=== PATIENT | female | born 1940 | race Caucasian/White ===

== ENCOUNTER 2019-04-25 17:39 | Inpatient (IN) ==
[2019-04-25 18:57] LABS: Basophils % 0.2 %; Eosinophils % 0.1 %; Hematocrit 43.6 % (35.3-44.9); Hemoglobin 15.1 g/dL (11.5-15.4); Immature Granulocytes % 0.3 % (0-4); Lymphocytes # 2.1 K/mcL (0.6-4.6); Lymphocytes % 13.2 %; Mean Corpuscular HGB Conc 34.6 g/dL (31.6-35.5); Mean Corpuscular Hemoglobin 29.9 pg (28.0-33.3); Mean Corpuscular Volume 86.3 fL (83.0-100.0); Mean Platelet Volume 9.4 fL (9.4-12.4); Monocytes # 1.3 K/mcL (0.0-1.3); Monocytes % 8.1 %; Neutrophils # 12.6 K/mcL (1.6-8.9); Platelet Count 317 K/mcL (140-400); Red Blood Count 5.05 M/mcL (3.82-4.97); Red Cell Distribution Width 12.5 % (11.5-14.5); Segmented Neutrophils % 78.1 %; White Blood Count 16.1 K/mcL (4.3-11.1)
[2019-04-25 19:14] LABS: Alanine Aminotransferase 16 Units/L (7-52); Albumin 4.6 g/dL (3.5-5.7); Albumin/Globulin Ratio 1.3 (1.1-2.2); Alkaline Phosphatase 97 Units/L (34-104); Aspartate Amino Transferase 18 Units/L (13-39); BUN/Creatinine Ratio 22 (6-26); Bilirubin,Total 0.9 mg/dL (0.3-1.0); Blood Urea Nitrogen 22 mg/dL (8-23); Calcium 10.3 mg/dL (8.6-10.3); Carbon Dioxide 25 mEq/L (23-29); Chloride 99 mEq/L (98-107); Globulin 3.5 g/dL (2.4-3.5); Glucose 104 mg/dL (70-105); Lipase 16 Units/L (11-82); Osmolality,Calculated 288 (280-300); Potassium 3.4 mEq/L (3.5-5.1); Sodium 137 mEq/L (136-145); Total Protein 8.1 g/dL (6.4-8.9); eGFR For African Americans > 60 (> 60); eGFR For Non-African Americans 53 (> 60)
--- NOTE | 2019-04-25 19:33 | Emergency Department Note ---
Disposition Clinical Impression: Bloody stool, Colitis, Atherosclerotic cardiovascular disease Abdominal pain Qualifiers: Abdominal location: generalized Qualified Code(s): R10.84 - Generalized abdominal pain Sepsis Qualifiers: Sepsis type: sepsis due to unspecified organism Qualified Code(s): A41.9 - Sepsis, unspecified organism Disposition: Admitted As Inpatient Referrals: NONE,PCP [Primary Care Provider] - Forms: ED Satisfaction Letter Time of Disposition: 22:51 General Adult HPI - General Chief complaint: ED GI Bleed Stated complaint: Vomiting,Bloody Stool Time Seen by Provider: 04/25/19 19:10 Source: patient, family Mode of arrival: private vehicle Limitations: no limitations Nursing Notes Reviewed: Yes Vital Signs Reviewed: Yes - History of Present Illness HPI Narrative: Patient is a 78 year old female with a past medical history of hypertension, hyperlipidemia, GERD, arthritis, presenting with a chief complaint of vomiting an one episode of bloody diarrhea at 1030 am. Yesterday evening she had a salad with turkey on it and 2 hours later she started to vomit. She has had several episodes of nonbilious nonbloody emesis. This morning she 2 episodes of diarrhea. The second episode had a visible dark red blood. She complains of mild diffuse abdominal pain which he describes as cramping. No dysuria hematuria. Denies fevers or chills. No chest pain or shortness breath. Madisyn nt does note she also had an episode of right-sided flank pain for 2 days that is now resolved. Has never had a colonoscopy before. Pain Scale: 6 - Related Data Allergies Allergy/AdvReac Type Severity Reaction Status Date / Time No Known Allergies Allergy Verified 04/25/19 20:15 All systems ED: reviewed and negative except as stated. Review of Systems: As Per HPI Constitutional: Denies: fever, chills Cardiovascular: Denies: chest pain, palpitations Respiratory: Denies: cough, dyspnea Gastrointestinal: Reports: abdominal pain, nausea, vomiting, diarrhea, hematochezia. Denies: hematemesis, melena Genitourinary: Denies: dysuria, hematuria Musculoskeletal: Denies: back pain Neurological: Denies: headache Past Medical History - Past Medical History Attestation: Yes The following information was validated with the patient. Source: patient Medical history: Reports: arthritis, GERD, hyperlipidemia, hypertension Psychiatric history: Reports: no psych history - Social History Smoking Status: Never smoker Smokeless Tobacco Status: No Alcohol use: Reports: none Drug use: Reports: none Physical Exam - General Limitations: no limitations General appearance: alert, in no apparent distress - Head Head exam: atraumatic, normocephalic, normal inspection - Eye Eye exam: Present: normal appearance, PERRL, EOMI - ENT ENT exam: normal exam, normal oropharynx, mucous membranes moist - Neck Neck exam: Present: normal inspection, trachea midline - Chest Chest inspection: Present: normal inspection, symmetric chest wall rise - Respiratory Respiratory exam: Present: normal lung sounds bilaterally. Absent: respiratory distress, wheezes - Cardiovascular Cardiovascular exam: Present: normal rhythm, tachycardia, normal heart sounds - Abdominal Exam Abdominal exam: Present: soft, Non-Tender. 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 Absent: pedal edema - Neurological Exam Neurological exam: Present: alert, oriented X3 - Psychiatric Psychiatric exam: Present: normal affect, normal mood - Skin Skin exam: Present: warm, dry. Absent: diaphoresis, pallor Course Vital Signs Temperature 99 F 04/25/19 18:02 Pulse Rate 116 04/25/19 18:02 Respiratory Rate 20 04/25/19 18:02 Blood Pressure 135/79 04/25/19 18:02 O2 Sat by Pulse Oximetry 94 04/25/19 18:02 Temperature 99 F 04/25/19 18:02 Pulse Rate 116 04/25/19 18:02 Respiratory Rate 20 04/25/19 18:02 Blood Pressure 135/79 04/25/19 18:02 O2 Sat by Pulse Oximetry 94 04/25/19 18:02 Oxygen Delivery Oxygen Delivery Room Air Medical Decision Making - MDM Narrative Medical decision making narrative: Patient does have leukocytosis. She has a nontender abdomen. She has grossly bright red stool on rectal examination. No hemorrhoids noted or anal tears. She is slightly tachycardic. Hemoglobin and hematocrit are within normal limits. We will give her a liter of IV fluids and give her Zofran for nausea. EKG shows no acute ischemic changes. Troponin less than 0.03 and electrolytes within normal limits. We will obtain CT abdomen and pelvis with IV contrast to further evaluate. 21:20 CT imaging shows circumferential wall thickening and surrounding stranding involving short segment of colon at the level of the distal transverse colon and splenic flexure which could represent focal colitis versus mass. She will require direct visualization with colonoscopy. She also has moderate to severe atherosclerotic disease of the aorta. Cholelithiasis is noted without cholecystitis. We will obtain lactate and blood cultures. She will need to receive another 1500 mL bolus of IV fluids. We will start IV Cipro and Flagyl for the colitis. She will be admitted for sepsis secondary to colitis and lower GI bleed. 2:[address] Nelson who accepts admission - Medical Records Medical records reviewed: Yes I reviewed the patient's medical records. - Lab Data Lab results reviewed: Yes I reviewed the patient's lab results. Result diagrams: 04/25/19 18:40 04/25/19 18:40 Lab Results 04/25/19 04/25/19 04/25/19 Range/Units 18:40 18:40 18:40 WBC 16.1 H (4.3-11.1) K/mcL RBC 5.05 H (3.82-4.97) M/mcL Hgb 15.1 (11.5-15.4) g/dL Hct 43.6 (35.3-44.9) % MCV 86.3 (83.0-100.0) fL MCH 29.9 (28.0-33.3) pg MCHC 34.6 (31.6-35.5) g/dL RDW 12.5 (11.5-14.5) % Plt Count 317 (140-400) K/mcL MPV 9.4 (9.4-12.4) fL Immature Gran % 0.3 (0-4) % Seg Neutrophils % 78.1 % Lymphocytes % 13.2 % Monocytes % 8.1 % Eosinophils % 0.1 % Basophils % 0.2 % Neutrophils # 12.6 H (1.6-8.9) K/mcL Lymphocytes # 2.1 (0.6-4.6) K/mcL Monocytes # 1.3 (0.0-1.3) K/mcL Eosinophils # 0.0 (0.0-0.6) K/mcL Basophils # 0.0 (0.0-0.2) K/mcL Sodium 137 (136-145) mEq/L Potassium 3.4 L (3.5-5.1) mEq/L Chloride 99 (98-107) mEq/L Carbon Dioxide 25 (23-29) mEq/L BUN 22 (8-23) mg/dL Creatinine 1.02 (0.60-1.20) mg/dL Est GFR ( Amer) > 60 (> 60) Est GFR (Non-Af Amer) 53 L (> 60) BUN/Creatinine Ratio 22 (6-26) Glucose 104 (70-105) mg/dL Calculated Osmolality 288 (280-300) Lactic Acid 1.5 (0.5-2.2) mmol/L Calcium 10.3 (8.6-10.3) mg/dL Total Bilirubin 0.9 (0.3-1.0) mg/dL AST 18 (13-39) Units/L ALT 16 (7-52) Units/L Alkaline Phosphatase 97 (34-104) Units/L Troponin I (< 0.04) ng/mL Serum Total Protein 8.1 (6.4-8.9) g/dL Albumin 4.6 (3.5-5.7) g/dL Globulin 3.5 (2.4-3.5) g/dL Albumin/Globulin Ratio 1.3 (1.1-2.2) Lipase 16 (11-82) Units/L Stool Occult Bld Scrn (Negative) 04/25/19 04/25/19 04/25/19 Range/Units 18:40 19:48 21:44 WBC (4.3-11.1) K/mcL RBC (3.82-4.97) M/mcL Hgb (11.5-15.4) g/dL Hct (35.3-44.9) % MCV (83.0-100.0) fL MCH (28.0-33.3) pg MCHC (31.6-35.5) g/dL RDW (11.5-14.5) % Plt Count (140-400) K/mcL MPV (9.4-12.4) fL Immature Gran % (0-4) % Seg Neutrophils % % Lymphocytes % % Monocytes % % Eosinophils % % Basophils % % Neutrophils # (1.6-8.9) K/mcL Lymphocytes # (0.6-4.6) K/mcL Monocytes # (0.0-1.3) K/mcL Eosinophils # (0.0-0.6) K/mcL Basophils # (0.0-0.2) K/mcL Sodium (136-145) mEq/L Potassium (3.5-5.1) mEq/L Chloride (98-107) mEq/L Carbon Dioxide (23-29) mEq/L BUN (8-23) mg/dL Creatinine (0.60-1.20) mg/dL Est GFR ( Amer) (> 60) Est GFR (Non-Af Amer) (> 60) BUN/Creatinine Ratio (6-26) Glucose (70-105) mg/dL Calculated Osmolality (280-300) Lactic Acid 0.7 (0.5-2.2) mmol/L Calcium (8.6-10.3) mg/dL Total Bilirubin (0.3-1.0) mg/dL AST (13-39) Units/L ALT (7-52) Units/L Alkaline Phosphatase (34-104) Units/L Troponin I < 0.03 (< 0.04) ng/mL Serum Total Protein (6.4-8.9) g/dL Albumin (3.5-5.7) g/dL Globulin (2.4-3.5) g/dL Albumin/Globulin Ratio (1.1-2.2) Lipase (11-82) Units/L Stool Occult Bld Scrn Positive A (Negative) - Radiology Data Radiology results reviewed: Yes I reviewed the patient's radiology results. Chest X-Ray 04/25/19 18:34 IMPRESSION: No acute abnormality identified. D/ / Merari Joseph Cha, MD / Merari Joseph Cha, MD Interpreting Provider: Merari Joseph Cha, MD Chest X-Ray 04/25/19 18:34 IMPRESSION: No acute abnormality identified. D/ / Merari Joseph Cha, MD / Merari Joseph Cha, MD Interpreting Provider: Merari Joseph Cha, MD Abdomen/Pelvis CT 04/25/19 19:50 IMPRESSION: 1. Circumferential wall thickening and surrounding stranding involving a short segment of colon at the level of the distal transverse colon/splenic flexure. While findings potentially could reflect focal colitis, recommend direct visualization when clinically feasible to exclude the possibility of underlying mass. 2. Moderate to severe atherosclerotic disease of the aorta. The mesenteric vessels appear patent within limits of the exam. 3. Cholelithiasis. D/ / Samir Marti MD / Samir Marti MD Interpreting Provider: Samir Marti MD - EKG Data EKG #1 EKG attestation: Yes I reviewed and interpreted this EKG. EKG results narrative: EKG obtained at 1910 shows sinus tachycardia with heart rate 103, IA interval 181, QRS duration 80, QTc 432, T-wave inversion in V3, V4, lead 2, lead 3, aVF, no ST elevation or depression. Compared to old EKG on March 30 2006 which shows no new changes. Attestation Statement - Attestation Attestation: This documentation is done with the assistance of Dragon dictation. Despite efforts made to ensure accuracy, there may be inaccuracies in repeat photocomposing machine operator or spelling and typographical errors. I examined this patient and my medical decision-making was reviewed with the Resident Physician. I agree with the documented findings, disposition and treatment plan as described except to the extent set forth below. Patient was seen and evaluated by Dr. abbasi, I agree with their evaluation and management plan,I supervised the care of the patient's stay. Patient presents today after having abdominal pain and blood in her bowel movement 24 hours. Should yesterday morning she felt fine she ate some last night vomited and then had this occur. She denies any history of bloody bowel movement. She says that she had a test on a couple years ago to make sure she did not have colon cancer but refuses colonoscopy. She is on aspirin but does not have any easy bleeding. Here she has guaiac positive stool. Doing workup on her including a CT and most likely will need admission. I reviewed the residents documentation and agree with the residents assessment and plan of care. I have personally had face to face time with the patient. (Brief History, Brief Exam, and MDM) I personally supervised and was present for the silva/critical portions of the following procedures completed by the resident: EKG was read and interpreted by the ED resident, under my supervision, agree with their interpretation.
[2019-04-25] MEDS ORDERED: Isovue-370 500 ML BOTTLE IVP ONE (19:50)
[2019-04-25] MEDS ORDERED: 0.9 % Sodium Chloride 1,000 ML IVC ONE ×2 (19:50→21:53)
[2019-04-25] MEDS ORDERED: Ondansetron 4 MG/2 ML VIAL IVP ONE (19:51)
[2019-04-25] MEDS ORDERED: 0.9 % Sodium Chloride 500 ML IVC ONE (21:53)
[2019-04-25] MEDS ORDERED: MetroNIDAZOLE 500 MG/100 ML 500 MG/100 ML BAG IVPB ONE (21:54)
[2019-04-26] MEDS ORDERED: Acetaminophen 325 MG TABLET PO PRN (05:46)
[2019-04-26] MEDS ORDERED: Naloxone 0.4 MG/ML INJ IVP PRN (05:46)
[2019-04-26] MEDS ORDERED: *HR* HYDROcodone/Acet 5/325 mg TABLET PO PRN (05:46)
[2019-04-26] MEDS ORDERED: Ondansetron 4 MG/2 ML VIAL IVP PRN (05:46)
[2019-04-26 06:16] LABS: Bilirubin,Urine Negative (Negative); Blood,Urine Negative (Negative); Clarity,Urine Clear (Clear); Color,Urine Yellow (Yellow); Glucose,Urine (UA) Normal (Normal); Ketones,Urine Negative (Negative); Leukocyte Esterase,Urine Negative (Negative); Nitrite,Urine Positive (Negative); PH,Urine 5.5 pH Units (5.0-8.0); Protein,Urine Negative (Neg-Trace); Specific Gravity,Urine > 1.030 (1.010-1.025); Urobilinogen,Urine Normal (Normal)
[2019-04-26] MEDS: Pantoprazole 40 MG VIAL IVP SCH ×2 (06:16→18:17)
[2019-04-26] MEDS: 0.9 % Sodium Chloride w KCl 20 MEQ/1,000 ML MLS IVC SCH ×2 (06:16→18:17)
[2019-04-26 06:20] LABS: Bacteria,Urine Moderate per hpf (None-Few); Hyaline Casts,Urine None Seen per lpf (None-Few); RBC,Urine 0-3 per hpf (0-3); Squamous Epithelial Cell,Urine Many per lpf (None-Few)
--- NOTE | 2019-04-26 06:25 | Internal Med History&Physical ---
Date of Encounter: 04/26/19 Time of Encounter: 05:15 Internal Medicine - H&P: HPI Chief complaint: abdominal pain; bloody stool Admitted From: Emergency Dept Plans for Post Hospital Care: Home History of present illness: Ms. Ramsey is a 78 year old female who presents with a 2 day history of abdominal pain, cramping, nausea, vomiting, and diarrhea with bloody stools. Symptoms became worse and were causing her to double over. She therefore came to ER where she underwent CT scan imaging. CT scan found concerns for possible colitis versus colonic mass. She was admitted to hospital service for further care. Upon my assessment of the patient, she is resting bed comfortably now. She does have some mild pain but is much improved. She has had some fevers and chills at home last 2 days. She denies any exotic food ingestion. She denies any raw or undercooked meats. Regarding the bloody stools, she has never had a colonoscopy in the past. CT scan results are concerning for possible malignancy versus coli tis. She will need a colonoscopy once her colitis improves. I discussed this with patient and she is agreeable. She denies any unexplained weight loss, appetite loss, and/or nausea vomiting prior to this episode which began 2 days ago. Past Med Surg Social Fam HX - Past Medical History Attestation: Yes The following information was validated with the patient. Source: patient, old records reviewed Medical history: arthritis, GERD, hyperlipidemia, hypertension Psychiatric history: no psych history - Past Surgical History Surgical History: appendectomy, cataract, cholecystectomy, hysterectomy, knee replacement - Social History Smoking Status: Never smoker Smokeless Tobacco Status: No Alcohol use: none Drug use: none Current living situation: Home Activity Level: Independent ambulation Recent Out of Country Travel Within the Last 8 Weeks: No - Family History Mother History Unknown: Yes Father History Unknown: Yes Internal Medicine - H&P: Meds Aspirin 81 mg pe PO DAILY 04/25/19 [History] Lisinopril-HCTZ 20-12.5 20 mg PO DAILY 04/25/19 [History] Metoprolol 100 mg PO DAILY 04/25/19 [History] Ranitidine HCl 150 mg PO DAILY 04/25/19 [History] Simvastatin 40 mg PO DAILY 04/25/19 [History] Tramadol HCl 50 mg PO DAILY 04/25/19 [History] Vitamin D 10,000 units PO DAILY 04/25/19 [History] Allergy/AdvReac Type Severity Reaction Status Date / Time No Known Allergies Allergy Verified 04/25/19 20:15 - Constitutional Constitutional: chills, fever(s), no night sweats - EENT Eyes: no blurry vision, no change in vision Ears: no ear pain, no tinnitus Nose, mouth and throat: no sore throat - Cardiovascular Cardiovascular ROS IM: no chest pain, no dyspnea, no dyspnea on exertion - Respiratory Respiratory: no cough, no dyspnea, no chest congestion, no excessive phlegm production - Gastrointestinal Gastrointestinal: abdominal pain, diarrhea, hematochezia, nausea, vomiting, no coffee ground emesis, no melena - Genitourinary Genitourinary: no dysuria, no flank pain, no hematuria - Musculoskeletal Musculoskeletal ROS IM: no arthralgias, no back pain - Integumentary Integumentary IM: no rash, no jaundice - Neurological Neurological ROS: no dizziness, no focal weakness, no frequent falls, no headache(s) - Psychiatric Psychiatric: no anxiety, no depression - Endocrine Endocrine IM: no cold intolerance, no heat intolerance, no polydipsia, no polyuria - Allergic/Immunologic Allergic/Immunologic: no wheezing, no GI upset with certain foods - Constitutional Vitals: Temp Pulse Resp BP Pulse Ox 98.4 F 81 16 124/69 96 04/26/19 04:37 04/26/19 04:37 04/26/19 04:37 04/26/19 04:37 04/26/19 04:37 General appearance: Present: cooperative, mild distress, A&O X 3, pleasant, answers questions appropriately Exam: see below - Head Head exam: Present: normal inspection - Eye Eye exam: Present: EOMI, PERRL. Absent: scleral icterus Pupils: Present: normal accommodation - ENT ENT exam: Present: mucous membranes dry, normal exam, normal oropharynx - Neck Neck exam general surgery: Present: full ROM, supple, trachea midline. Absent: tenderness, nuchal rigidity, thyromegaly - Respiratory Respiratory exam: Present: CTAB. Absent: rales, rhonchi, wheezes - Cardiovascular Cardiovascular exam: Present: +S1, +S2. Absent: diastolic murmur, distant heart sounds, systolic murmur - GI/Abdominal GI/Abdominal exam: Present: hypoactive bowel sounds, tenderness, no peritoneal signs. Absent: guarding, hepatomegaly, rebound, splenomegaly - Extremities Exam Extremities exam: Present: full ROM, normal capillary refill, tenderness. Absent: calf tenderness, pedal edema - Back Exam Back exam: Absent: CVA tenderness (L), CVA tenderness (R) - Neurological Exam Neurological exam: Present: alert, oriented X3, no focal deficits, strengths equal and symetr throughout - Psychiatric Psychiatric exam: Present: normal affect, normal mood - Skin Skin exam: Present: dry, intact, warm Internal Med - H&P Results - Labs CBC & Chem 7: 04/25/19 18:40 04/25/19 18:40 Labs: Short CBC 04/25/19 Range/Units 18:40 WBC 16.1 H (4.3-11.1) K/mcL Hgb 15.1 (11.5-15.4) g/dL Hct 43.6 (35.3-44.9) % Plt Count 317 (140-400) K/mcL Neutrophils # 12.6 H (1.6-8.9) K/mcL BMP 04/25/19 18:40 Sodium 137 Potassium 3.4 L Chloride 99 Carbon Dioxide 25 BUN 22 Creatinine 1.02 Glucose 104 Calcium 10.3 Cardiac Enzymes 04/25/19 Range/Units 18:40 Troponin I < 0.03 (< 0.04) ng/mL Liver Function 04/25/19 Range/Units 18:40 Total Bilirubin 0.9 (0.3-1.0) mg/dL AST 18 (13-39) Units/L ALT 16 (7-52) Units/L Alkaline Phosphatase 97 (34-104) Units/L Albumin 4.6 (3.5-5.7) g/dL - Impressions ITS Impressions Chest X-Ray 04/25/19 18:34 IMPRESSION: No acute abnormality identified. D/ / Merari Joseph Cha, MD / Merari Joseph Cha, MD Interpreting Provider: Merari Joseph Cha, MD Abdomen/Pelvis CT 04/25/19 19:50 IMPRESSION: 1. Circumferential wall thickening and surrounding stranding involving a short segment of colon at the level of the distal transverse colon/splenic flexure. While findings potentially could reflect focal colitis, recommend direct visualization when clinically feasible to exclude the possibility of underlying mass. 2. Moderate to severe atherosclerotic disease of the aorta. The mesenteric vessels appear patent within limits of the exam. 3. Cholelithiasis. D/ / Samir Marti MD / Samir Marti MD Interpreting Provider: Samir Marti MD - Diagnostic Studies CT scan - abdomen Status: image reviewed by me - Assessment and Plan (1) Colitis Current Visit: Yes Status: Acute Assessment and plan: 1. NPO. 2. IVF, pain control, anti-emetics. 3. IV Flagyl, Cipro. 4. Consult surgery -- discussed with Dr. Palacios. (2) Abdominal pain Current Visit: Yes Status: Acute Assessment and plan: 1. Likely due to above. Sudden onset 2 - 3days ago. 2. Care and surgical consult as above. Qualifiers: Abdominal location: generalized Qualified Code(s): R10.84 - Generalized abdominal pain (3) DVT prophylaxis Current Visit: Yes Status: Acute Assessment and plan: 1. EPCD's.
[2019-04-26] MEDS: MetroNIDAZOLE 500 MG/100 ML 500 MG/100 ML BAG IVPB SCH ×2 (09:22→18:17)
--- NOTE | 2019-04-26 10:55 | AcuteCare Surgery Consult Note ---
Date of Encounter: 04/26/19 Time of Encounter: 10:50 Assessment and Plan (1) Hematemesis Current Visit: Yes Status: Acute Discussed diagnosis of hematemesis with pt and her daughter. Recommend EGD for evaluation for UGI bleeding. H&H stable and normal. Procedure, risk and benefits of upper endoscopy are discussed. Pt understands risks and possible complications. Possible complications include but, are not limited to bleeding, infection or perforation. Pt understands and wishes to proceed as recommended. Consent is obtained. Inpatient upper endoscopy is scheduled. Qualifiers: Qualified Code(s): K92.0 - Hematemesis (2) Hematochezia Current Visit: Yes Status: Acute Recommend colonoscopy. Indications for colonoscopy are discussed in detail. They include abnormal findings on abd/pelvis CT and bloody diarrhea. Procedure, risk and benefits of colonscopy are discussed. Pt understands risks and possible complications. Possible complications include but, are not limited to bleeding, infection or perforation. Pt understands and wishes to proceed as recommended. Consent is obtained. Inpatient colonoscopy is scheduled. Prep today and scope tomorrow. (3) Colitis Current Visit: Yes Status: Acute Agree with IVF and clears only for bowel rest and prep. Continue IV abx with Cipro and Flagyl. Recheck CBC in am. History of Present Illness Consult date: 04/26/19 Reason for consult: abdominal pain Requesting physician: Elmer Medrano History of present illness: This 78 y/o female presents to [facility] c/o acute onset abdominal pain. She reports the pain was severe and led to nausea and diarrhea. She indicated to her mid abdomen on the left. She reports bright red vomiting. She thought is was the tomatoes that she had eaten earlier. She also reports an epidsode of bloody diarrhea. She feels somewhat better since she has been in hospital. She denies any previous hx of rectal bleeding. She denies previous colonoscopy. She denies fevers. Past Med Surg Social Fam HX - Past Medical History Medical history: arthritis, GERD, hyperlipidemia, hypertension Psychiatric history: no psych history - Past Surgical History Surgical History: appendectomy, cataract, cholecystectomy, hysterectomy, knee replacement - Social History Smoking Status: Never smoker Smokeless Tobacco Status: No Alcohol use: none Drug use: none - Family History Mother History Unknown: Yes Father History Unknown: Yes Medications and Allergies Aspirin 81 mg pe PO DAILY 04/25/19 [History] Lisinopril-HCTZ 20-12.5 20 mg PO DAILY 04/25/19 [History] Metoprolol 100 mg PO DAILY 04/25/19 [History] Ranitidine HCl 150 mg PO DAILY 04/25/19 [History] Simvastatin 40 mg PO DAILY 04/25/19 [History] Tramadol HCl 50 mg PO DAILY 04/25/19 [History] Vitamin D 10,000 units PO DAILY 04/25/19 [History] Allergy/AdvReac Type Severity Reaction Status Date / Time No Known Allergies Allergy Verified 04/25/19 20:15 Review of Systems All systems PM: The remainder of the systems were reviewed and are negative - Constitutional as per HPI, no anorexia, no chills, no fatigue, no fever(s), no night sweats, no weakness, no weight loss - EENT Nose, mouth and throat: dry mouth, no nasal congestion, no nasal discharge, no sinus pain, no sinus pressure, no sore throat - Cardiovascular no chest pain, no diaphoresis, no dyspnea, no edema - Respiratory no cough, no dyspnea, no wheezing - Gastrointestinal abdominal pain, bloating, cramping, diarrhea, hematemesis, hematochezia, nausea, vomiting, no constipation, no melena - Genitourinary Genitourinary: no difficulty voiding, no dysuria, no flank pain, no urinary frequency - Musculoskeletal joint swelling, limited range of motion, no back pain, no neck pain - Integumentary no dry skin, no pruritus, no rash, no wounds, no jaundice - Neurological no dizziness, no focal weakness, no frequent falls, no weakness - Hematologic/Lymphatic no easy bleeding, no easy bruising General Surgery Exam Initial Vital Signs Temp Pulse Resp BP Pulse Ox 99 F 116 20 135/79 94 04/25/19 18:02 04/25/19 18:02 04/25/19 18:02 04/25/19 18:02 04/25/19 18:02 - General physical appearance well nourished, no distress, no pain. negative: jaundice - Eyes PERRL, normal ocular movement. negative: icteric - ENT no congestion, dry mucosa. negative: nasal discharge - Neck no masses, trachea midline, no lymphadectomy, no venous distension - Respiratory normal respiratory effort, clear to auscultation - Cardiovascular Cardiovascular exam: Present: RRR. Absent: murmurs, JVD - Abdomen Abdomen general surgery: Present: bowel sounds present, soft, tender. Absent: distended, guarding, rebound Abdominal Tenderness: Present: LUQ, LLQ - Genitourinary Present: normal external genitalia - Integumentary Integumentary general surgery: Present: warm and dry - Neurologic Present: CN 2-12 grossly intact, normal coordination - Musculoskeletal Present: normal gait, normal posture - Psychiatric Psychiatric general surgery: Present: A&Ox3, appropriate Exam Initial Vital Signs Temp Pulse Resp BP Pulse Ox 99 F 116 20 135/79 94 04/25/19 18:02 04/25/19 18:02 04/25/19 18:02 04/25/19 18:02 04/25/19 18:02 Results - Labs 04/25/19 18:40 04/25/19 18:40 Abnormal lab results WBC 16.1 K/mcL (4.3-11.1) H 04/25/19 18:40 RBC 5.05 M/mcL (3.82-4.97) H 04/25/19 18:40 Neutrophils # 12.6 K/mcL (1.6-8.9) H 04/25/19 18:40 Potassium 3.4 mEq/L (3.5-5.1) L 04/25/19 18:40 Est GFR (Non-Af Amer) 53 (> 60) L 04/25/19 18:40 Ur Specific Harrison > 1.030 (1.010-1.025) H 04/26/19 05:30 Urine Nitrite Positive (Negative) A 04/26/19 05:30 Urine Microscopic WBC 5-15 per hpf (0-3) H 04/26/19 05:30 Ur Squamous Epith Cells Many per lpf (None-Few) H 04/26/19 05:30 Urine Bacteria Moderate per hpf (None-Few) H 04/26/19 05:30 Ur Culture Indicated? YES (NO) A 04/26/19 05:30 Stool Occult Bld Scrn Positive (Negative) A 04/25/19 19:48 Diabetes panel 04/25/19 Range/Units 18:40 Sodium 137 (136-145) mEq/L Potassium 3.4 L (3.5-5.1) mEq/L Chloride 99 (98-107) mEq/L Carbon Dioxide 25 (23-29) mEq/L BUN 22 (8-23) mg/dL Creatinine 1.02 (0.60-1.20) mg/dL Glucose 104 (70-105) mg/dL Calcium 10.3 (8.6-10.3) mg/dL AST 18 (13-39) Units/L ALT 16 (7-52) Units/L Alkaline Phosphatase 97 (34-104) Units/L Albumin 4.6 (3.5-5.7) g/dL Calcium panel 04/25/19 Range/Units 18:40 Calcium 10.3 (8.6-10.3) mg/dL Albumin 4.6 (3.5-5.7) g/dL Pituitary panel 04/25/19 Range/Units 18:40 Sodium 137 (136-145) mEq/L Potassium 3.4 L (3.5-5.1) mEq/L Chloride 99 (98-107) mEq/L Carbon Dioxide 25 (23-29) mEq/L BUN 22 (8-23) mg/dL Creatinine 1.02 (0.60-1.20) mg/dL Glucose 104 (70-105) mg/dL Calcium 10.3 (8.6-10.3) mg/dL Adrenal panel 04/25/19 Range/Units 18:40 Sodium 137 (136-145) mEq/L Potassium 3.4 L (3.5-5.1) mEq/L Chloride 99 (98-107) mEq/L Carbon Dioxide 25 (23-29) mEq/L BUN 22 (8-23) mg/dL Creatinine 1.02 (0.60-1.20) mg/dL Glucose 104 (70-105) mg/dL Calcium 10.3 (8.6-10.3) mg/dL Total Bilirubin 0.9 (0.3-1.0) mg/dL AST 18 (13-39) Units/L ALT 16 (7-52) Units/L Alkaline Phosphatase 97 (34-104) Units/L Albumin 4.6 (3.5-5.7) g/dL All other labs normal. - Imaging CT scan - abdomen: image reviewed (Circumferential wall thickening at distal transverse colon/splenic flexure c/w focal inflammation vs. malignancy. Few calicafied granulomata in liver. Cholelithiasis.) CT scan - pelvis: image reviewed Consult Discharge Plan - Plan Referrals: NONE,PCP [Primary Care Provider] -
--- NOTE | 2019-04-26 18:57 | Event Note ---
Date of Encounter: 04/26/19 Time of Encounter: 10:05 Patient was admitted for abdominal pain and hematochezia. CT scan is consistent with colitis versus colon mass. Patient had one episode of hematochezia while in the hospital. Urine and blood cultures are still pending. Patient is hemodynamically stable. She is on Flagyl and ciprofloxacin. She was able to tolerate clear liquid diet without abdominal pain, nausea or vomiting. Surgery consult was placed and patient was evaluated and tomorrow she will be taken for upper endoscopy for the evaluation of hematochezia. We will check CBC tomorrow.
[2019-04-27 02:20] LABS: Basophils % 0.3 %; Eosinophils # 0.1 K/mcL (0.0-0.6); Eosinophils % 1.4 %; Hematocrit 33.5 % (35.3-44.9); Hemoglobin 11.5 g/dL (11.5-15.4); Immature Granulocytes % 0.3 % (0-4); Lymphocytes # 1.8 K/mcL (0.6-4.6); Mean Corpuscular HGB Conc 34.3 g/dL (31.6-35.5); Mean Corpuscular Hemoglobin 30.5 pg (28.0-33.3); Mean Corpuscular Volume 88.9 fL (83.0-100.0); Mean Platelet Volume 9.3 fL (9.4-12.4); Monocytes % 9.7 %; Neutrophils # 6.9 K/mcL (1.6-8.9); Platelet Count 230 K/mcL (140-400); Red Blood Count 3.77 M/mcL (3.82-4.97); Red Cell Distribution Width 12.8 % (11.5-14.5); Segmented Neutrophils % 70.3 %; White Blood Count 9.8 K/mcL (4.3-11.1)
[2019-04-27 02:27] LABS: INR 1.2; Prothrombin Time 13.1 Seconds (9.4-12.1)
[2019-04-27 02:30] LABS: Activated Partial Thrombo Time 27.5 Seconds (26.0-36.0)
[2019-04-27 02:38] LABS: Alanine Aminotransferase 11 Units/L (7-52); Albumin 3.4 g/dL (3.5-5.7); Albumin/Globulin Ratio 1.2 (1.1-2.2); Alkaline Phosphatase 74 Units/L (34-104); Aspartate Amino Transferase 14 Units/L (13-39); BUN/Creatinine Ratio 8 (6-26); Bilirubin,Total 0.6 mg/dL (0.3-1.0); Blood Urea Nitrogen 7 mg/dL (8-23); Carbon Dioxide 24 mEq/L (23-29); Chloride 109 mEq/L (98-107); Globulin 2.9 g/dL (2.4-3.5); Glucose 104 mg/dL (70-105); Osmolality,Calculated 290 (280-300); Potassium 3.7 mEq/L (3.5-5.1); Sodium 141 mEq/L (136-145); Total Protein 6.3 g/dL (6.4-8.9); eGFR For African Americans > 60 (> 60); eGFR For Non-African Americans > 60 (> 60)
[2019-04-27] MEDS: MetroNIDAZOLE 500 MG/100 ML 500 MG/100 ML BAG IVPB SCH ×3 (05:19→16:52)
[2019-04-27] MEDS: Pantoprazole 40 MG VIAL IVP SCH ×2 (05:19→17:55)
[2019-04-27] MEDS ORDERED: *HR* Midazolam HCl 5 MG/5 ML VIAL IVP ONE ×2 (07:59→10:24)
[2019-04-27] MEDS ORDERED: *HR* FentaNYL (PF) 100 MCG/2 ML VIAL ONE (07:59)
--- NOTE | 2019-04-27 08:35 | Pre-Sedation Evaluation ---
Pre-sedation evaluation - Pre-sedation checklist Date of procedure: 04/27/19 Procedure: EGD/Colon Recent Vitals: Last Vital Signs Temp 97.9 F 04/27/19 08:12 Pulse 80 04/27/19 08:12 Resp 16 04/27/19 08:12 BP 154/69 04/27/19 08:12 Pulse Ox 97 04/27/19 08:12 H&P (including ROS) documented in medical record: Yes Previous reaction to sedatives/anesthetics: No Dietary Status: NPO after Midnight Dentition: dentures removed Possible difficult airway: No ASA Classification *see protocol: CLASS II-Mild systemic disease Cardiac Registry (Cardio Only) - Clincal Frailty Scale Clinical Frailty Scale: Managing Well
--- NOTE | 2019-04-27 10:14 | Acute Care Surgery Event Note ---
Date of Encounter: 04/27/19 Time of Encounter: 09:00 Pt underwent EGD/Colonoscopy today. EGD reveals benign polyps, HH and Schatzki's ring. No UGI appreciated. Recommend routine GERD management. Colonscopy reveals colitis in a localized segment at the distal transverse colon and splenic flexure. There is no active bleeding. Area is biopsied. Colitis is ischemic vs infectious. I expect that ischemic is more likely than infectious. Continue current care. Maintain hydration and normal BP. COntinue IV abx. Advance diet to regular and DC home per primary service. Surgery will sign off. Thank you for allowing us to participate in this patient's care.
--- NOTE | 2019-04-27 14:49 | Internal Med Progress Note ---
Hospitalist Progress Note - Encounter Date of Encounter: 04/27/19 Time of Encounter: 11:00 - Subjective Interval History: No major events overnight. Patient was seen this a.m. He denied fever, chills or night sweats. sHe has no nausea, vomiting or abdominal pain. Patient denied chest pain, shortness of breath or palpitation. She had multiple bowel movements overnight due to her colon preparation. She noticed some blood with that. - Exam Vitals: Temp Pulse Resp BP Pulse Ox 98.1 F 64 16 144/75 97 04/27/19 11:28 04/27/19 11:28 04/27/19 11:28 04/27/19 11:28 04/27/19 11:28 Exam: General: Patient is alert, oriented 3. Head: Atraumatic, normal inspection, normocephalic. Eye: EOMI, PERRLA, no scleral icterus noted. ENT: Mucous membranes moist. No odontogenic infection noted. Neck: Normal inspection, no meningismus. Respiratory: No respiratory distress, rhonchi, or wheezes noted. Cardiovascular: Regular rate and regular rhythm, S1 and S2 audible. No murmurs, rubs, or gallops. GI: Soft, nondistended, normal bowel sounds. Extremities:No joint swelling, pedal edema, or tenderness noted. Neurological: Alert, oriented 3, no focal deficits. Psychiatric: normal affect, normal mood. Skin: Dry, intact, warm. Normal color. No rashes. - Assessment and Plan (1) Colitis Current Visit: Yes Status: Acute (2) Abdominal pain Current Visit: Yes Status: Resolved (3) Essential hypertension Current Visit: Yes Status: Chronic (4) DVT prophylaxis Current Visit: Yes Status: Acute - Summary of Assessment and Plan Summary of Assessment and Plan: 78-year-old female with history of hypertension who came into the hospital with left upper quadrant abdominal pain and hematochezia. Her symptoms are managed as following: Colitis: - Found on CT scan of the abdomen. - Patient had leukocytosis at presentation. Resolved today. - On day 2 of Flagyl and ciprofloxacin. - Colonoscopy and EGD today done by general surgery revealed area of nonbleeding colitis which could be infectious versus ischemic. - Patient was started on clear liquid diet, advance diet as tolerated, keep blood pressure elevated And avoid hypotension. Sepsis: - meet 2/4 SIRS criteria. - Management as per above HTN: - Controlled, heart all medication. DVT prophylaxis: SCD Disposition: Can discharge tomorrow. - Time Spent with Patient Total time spent is greater than 50% in coordination of care (as documented) at patient's floor/unit and/or counseling patient: Internal Medicine: Result - Labs CBC & Chem 7: 04/27/19 02:08 04/27/19 02:08 Labs: Short CBC 04/27/19 Range/Units 02:08 WBC 9.8 (4.3-11.1) K/mcL Hgb 11.5 D (11.5-15.4) g/dL Hct 33.5 L (35.3-44.9) % Plt Count 230 (140-400) K/mcL Neutrophils # 6.9 (1.6-8.9) K/mcL BMP 04/27/19 02:08 Sodium 141 Potassium 3.7 Chloride 109 H Carbon Dioxide 24 BUN 7 L Creatinine 0.86 Glucose 104 Calcium 9.0 Liver Function 04/27/19 Range/Units 02:08 Total Bilirubin 0.6 (0.3-1.0) mg/dL AST 14 (13-39) Units/L ALT 11 (7-52) Units/L Alkaline Phosphatase 74 (34-104) Units/L Albumin 3.4 L (3.5-5.7) g/dL - ABG Interpretation ABG results: PT/INR, D-dimer PT 13.1 Seconds (9.4-12.1) H 04/27/19 02:08 Consult Discharge Plan - Plan Referrals: Kamaljit-Lena Brantley DO [Non-Partnered Physician] - (2) Abdominal pain Qualifiers: Abdominal location: generalized Qualified Code(s): R10.84 - Generalized abdominal pain
[2019-04-28] MEDS: MetroNIDAZOLE 500 MG/100 ML 500 MG/100 ML BAG IVPB SCH ×2 (00:16→08:53)
[2019-04-28] MEDS: Pantoprazole 40 MG VIAL IVP SCH (05:23)
--- NOTE | 2019-04-28 10:28 | Discharge Summary ---
- NOTES TO OUTPATIENT PROVIDER Notes to Outpatient Provider: Follow-up on colonoscopy biopsies. Orders not resulted at time of discharge: Pending orders 04/25/19 18:34 EKG [ECG 12 lead ECG] [ECG] Stat 04/25/19 21:44 Culture,Blood [BC] Stat 04/27/19 08:57 Surgical Pathology [PTH] Routine 04/27/19 09:12 Surgical Pathology [PTH] Routine Date of Encounter: 04/28/19 Time of Encounter: 10:10 - Discharge Diagnosis (1) Colitis Priority: Primary Status: Resolved (2) Abdominal pain Priority: Secondary Status: Resolved Qualifiers: Abdominal location: generalized Qualified Code(s): R10.84 - Generalized abdominal pain (3) Essential hypertension Priority: Secondary Status: Chronic (4) DVT prophylaxis Priority: Secondary Status: Acute Hospital course: 78-year-old female with history of hypertension who came into the hospital with left upper quadrant abdominal pain and hematochezia. CT scan of the abdomen revealed distal transverse colon/splenic flexure colitis. Patient was started on ciprofloxacin and Flagyl with general surgery consult. Patient underwent upper and lower endoscopies with finding consistent with infectious versus ischemic colitis. Patient remained hemodynamically stable throughout hospitalization. Her leukocytosis resolved. She was able to tolerate regular diet without further pain or hematochezia. GS recommended to keep higher than normal blood pressure to avoid ischemic colitis. Patient is hemodynamically stable, asymptomatic. She will be discharged home in stable condition. Discharge discussed with: patient - Time Spent with Patient Total time spent providing and/or coordinating discharge services:42 minutes - Discharge Medications Prescriptions: Continued Cyanocobalamin (Vitamin B-12) [Vitamin B-12] 1,000 mcg PO DAILY Ergocalciferol (VITAMIN D2) [Vitamin D2] 50,000 unit PO FR Metoprolol Succinate [Toprol Xl] 100 mg PO DAILY raNITIdine HCl [Zantac] 150 mg PO BID Simvastatin [Zocor] 40 mg PO DAILY Tramadol HCl [Ultram] 50 mg PO QID PRN PRN Reason: Pain Aspirin [Adult Aspirin Regimen] 81 mg PO DAILY Discontinued Lisinopril/Hydrochlorothiazide [Zestoretic 20-25 mg Tablet] 1 tab PO DAILY Home Medications: Aspirin [Adult Aspirin Regimen] 81 mg PO DAILY 04/27/19 [History] Cyanocobalamin (Vitamin B-12) [Vitamin B-12] 1,000 mcg PO DAILY 04/27/19 [Hi story] Ergocalciferol (VITAMIN D2) [Vitamin D2] 50,000 unit PO FR 04/27/19 [History] Metoprolol Succinate [Toprol Xl] 100 mg PO DAILY 04/27/19 [History] Simvastatin [Zocor] 40 mg PO DAILY 04/27/19 [History] Tramadol HCl [Ultram] 50 mg PO QID PRN 04/27/19 [History] raNITIdine HCl [Zantac] 150 mg PO BID 04/27/19 [History] Allergies/Adverse Reactions: Allergy/AdvReac Type Severity Reaction Status Date / Time No Known Allergies Allergy Verified 04/27/19 12:19 Date of admission: 04/26/19 05:56 Primary care physician: PCP NONE Consults: 04/26/19 05:46 Consult to Surgery [CONS] Routine Consulting Provider: [facility] Reason for Consult: colitis/mass Call Completed: Yes - Constitutional Vitals: Temp Pulse Resp BP Pulse Ox 97.7 F 55 14 131/76 95 04/28/19 07:38 04/28/19 07:38 04/28/19 07:38 04/28/19 07:38 04/28/19 07:38 General appearance: Present: cooperative, mild distress, A&O X 3, pleasant, answers questions appropriately Exam: General: Patient is alert, oriented 3. Head: Atraumatic, normal inspection, normocephalic. Eye: EOMI, PERRLA, no scleral icterus noted. ENT: Mucous membranes moist. No odontogenic infection noted. Neck: Normal inspection, no meningismus. Respiratory: No respiratory distress, rhonchi, or wheezes noted. Cardiovascular: Regular rate and regular rhythm, S1 and S2 audible. No murmurs, rubs, or gallops. GI: Soft, nondistended, normal bowel sounds. No rebound or tenderness noted with physical exam. Extremities:No joint swelling, pedal edema, or tenderness noted. Neurological: Alert, oriented 3, no focal deficits. Psychiatric: normal affect, normal mood. Skin: Dry, intact, warm. Normal color. No rashes. - Patient Status Disposition: Home, Self-Care Condition: Good Functional capacity at discharge: independent ambulation Overall status at discharge: patient is back to baseline - Discharge Instructions Follow Up With: Kamaljit-Lena Brantley DO [Non-Partnered Physician] - - Diet and Activity Activity: resume usual activities as tolerated Diet: low salt diet
[2019-04-28 11:45] VITALS: BP 143/73
--- NOTE | 2019-04-28 18:15 | Electrocardiograph Report ---
[facility] Date: 2019-04-25 Pat Name: Yessenia Ramsey Department: [id number] Room: 3A52 Gender: F [employer] Chief: : [id number] Requested By: Jay Haskins Order Number: [id number] Reading MD: Polo Monteiro Measurements Intervals [place] Rate: 103 P: -6 [place]: 181 QRS: -10 QRSD: 88 T: -65 QT: 330 QTc: 432 Interpretive Statements Sinus tachycardia Low voltage, precordial leads Abnormal R-wave progression, early transition Borderline repolarization abnormality Electronically Signed On 04-28-2019 18:13:27 EDT by Polo Monteiro
== END 2019-04-28 11:57 | disposition home or self-care (01) | DRG 872 ==
LOC: EMEROOARM 17:39 → 3ANU 17:39 → SUATTDRO 04-26 05:56
PROVIDERS: ADMIT Family Medicine; ATTEND Internal Medicine
PROC: ENDOEBX (2019-04-27 08:00)
PROC: ENDOCBX (2019-04-27 08:00)

== ENCOUNTER 2019-06-10 08:01 | Inpatient (IN) ==
[2019-06-10] MEDS ORDERED: CeFAZolin Syr 2,000MG/20 ML 2,000 MG/20 ML SYRINGE IVPB ONE (08:31)
[2019-06-10] MEDS ORDERED: ROPIVACAINE/PF/NS 0.25% 1 EACH SYRINGE INTRAART ONE (08:38)
[2019-06-10] MEDS ORDERED: *HR* FentaNYL (PF) 100 MCG/2 ML VIAL ONE (08:38)
[2019-06-10] MEDS ORDERED: Ropivacaine/PF 0.5% 30 ML VIAL ONE (08:38)
[2019-06-10] MEDS ORDERED: Ringers Solution, Lactated 1,000 ML IVC SCH (08:45)
[2019-06-10] MEDS ORDERED: *HR* HYDROmorphone (PF) 1 MG/ML SYRINGE IVP PRN (09:06)
[2019-06-10] MEDS ORDERED: Ondansetron 4 MG/2 ML VIAL IVP ONE (09:06)
[2019-06-10] MEDS ORDERED: *HR* OxyCODONE Immed Rel 5 MG TABLET PO PRN (09:06)
[2019-06-10] MEDS ORDERED: Ondansetron 4 MG/2 ML VIAL ONE (09:25)
[2019-06-10] MEDS ORDERED: *HR* Propofol 200 MG/20 ML VIAL IVP ONE (09:25)
[2019-06-10] MEDS ORDERED: *HR* Succinylcholine 200 MG/10 ML VIAL IVP ONE (09:25)
[2019-06-10] MEDS ORDERED: Lidocaine -MPF 2% 2 ML VIAL ONE (09:25)
[2019-06-10] MEDS ORDERED: Lidocaine HCL 4 ML Topical Solution (Laryng-O-Jet Kit Sterile Pak) TP ONE (09:29)
[2019-06-10] MEDS ORDERED: Dexamethasone 4 MG/ML VIAL ONE (09:31)
[2019-06-10] MEDS ORDERED: Ethanol\\Acetic Acid\\Na Ace\\Ben 1,000 ML IRRIG.SOLN IR ONE (10:27)
[2019-06-10 13:03] LABS: Hematocrit 39.8 % (35.3-44.9); Hemoglobin 13.2 g/dL (11.5-15.4)
[2019-06-10] MEDS ORDERED: *HR* OxyCODONE/APAP 5/325 TABLET PO PRN (13:44)
[2019-06-10] MEDS ORDERED: Ondansetron 4 MG/2 ML VIAL IVP PRN (13:44)
[2019-06-10] MEDS ORDERED: MOM Conc 10 ML UD.LIQ PO PRN (13:44)
[2019-06-10] MEDS ORDERED: Sennosides 8.6 MG TABLET PO PRN (13:44)
[2019-06-10] MEDS ORDERED: Naloxone 0.4 MG/ML INJ IVP PRN (13:44)
[2019-06-10] MEDS: Famotidine 20 MG TABLET PO SCH ×2 (15:21→20:35)
[2019-06-10] MEDS: Metoprolol XL (24 HR) Succ 50 MG TAB.ER.24H PO SCH (15:21)
[2019-06-10] MEDS: Ringers Solution, Lactated 1,000 ML IVC SCH (15:22)
[2019-06-10] MEDS: Aspirin Enteric Coated 81 MG Tablet PO SCH (15:22)
[2019-06-10] MEDS: *HR* Enoxaparin 30 MG/0.3 ML SYRINGE SQ SCH (17:11)
[2019-06-10] MEDS ORDERED: *HR* Enoxaparin 30 MG/0.3 ML SYRINGE SQ SCH (18:00)
[2019-06-11 05:05] LABS: Hemoglobin 10.8 g/dL (11.5-15.4)
[2019-06-11 05:24] LABS: BUN/Creatinine Ratio 16 (6-26); Blood Urea Nitrogen 12 mg/dL (8-23); Calcium 8.9 mg/dL (8.6-10.3); Carbon Dioxide 24 mEq/L (23-29); Chloride 106 mEq/L (98-107); Glucose 180 mg/dL (70-105); Osmolality,Calculated 290 (280-300); Potassium 3.8 mEq/L (3.5-5.1); Sodium 138 mEq/L (136-145); eGFR For African Americans > 60 (> 60); eGFR For Non-African Americans > 60 (> 60)
[2019-06-11] MEDS: Ringers Solution, Lactated 1,000 ML IVC SCH (05:53)
[2019-06-11] MEDS: *HR* Enoxaparin 30 MG/0.3 ML SYRINGE SQ SCH ×2 (06:03→17:02)
[2019-06-11] MEDS ORDERED: Cholecalciferol (D-3) 1,000 UNIT (25MCG) TABLET PO SCH ×2 (09:00→10:00)
[2019-06-11] MEDS: Famotidine 20 MG TABLET PO SCH (10:02)
[2019-06-11] MEDS: Aspirin Enteric Coated 81 MG Tablet PO SCH (10:02)
[2019-06-11] MEDS: Metoprolol XL (24 HR) Succ 50 MG TAB.ER.24H PO SCH (10:02)
[2019-06-11] MEDS: *HR* OxyCODONE Immed Rel 5 MG TABLET PO PRN ×2 (13:29→20:48)
[2019-06-11] MEDS: Temazepam 15 MG CAPSULE PO PRN (20:49)
[2019-06-12] MEDS: *HR* OxyCODONE Immed Rel 5 MG TABLET PO PRN ×4 (04:14→21:42)
[2019-06-12] MEDS: *HR* Enoxaparin 30 MG/0.3 ML SYRINGE SQ SCH ×2 (05:49→16:52)
[2019-06-12 06:29] LABS: Hematocrit 30.6 % (35.3-44.9); Hemoglobin 10.2 g/dL (11.5-15.4)
[2019-06-12 06:47] LABS: BUN/Creatinine Ratio 20 (6-26); Blood Urea Nitrogen 15 mg/dL (8-23); Calcium 8.6 mg/dL (8.6-10.3); Carbon Dioxide 29 mEq/L (23-29); Chloride 104 mEq/L (98-107); Glucose 91 mg/dL (70-105); Osmolality,Calculated 292 (280-300); Potassium 3.6 mEq/L (3.5-5.1); Sodium 141 mEq/L (136-145); eGFR For African Americans > 60 (> 60); eGFR For Non-African Americans > 60 (> 60)
[2019-06-12] MEDS: Metoprolol XL (24 HR) Succ 50 MG TAB.ER.24H PO SCH (10:34)
[2019-06-12] MEDS: Aspirin Enteric Coated 81 MG Tablet PO SCH (10:34)
[2019-06-12] MEDS: Famotidine 20 MG TABLET PO SCH (10:34)
[2019-06-12] MEDS: Cholecalciferol (D-3) 1,000 UNIT (25MCG) TABLET PO SCH (13:12)
[2019-06-12] MEDS: Temazepam 15 MG CAPSULE PO PRN (21:41)
[2019-06-13] MEDS: *HR* Enoxaparin 30 MG/0.3 ML SYRINGE SQ SCH (05:55)
[2019-06-13] MEDS: *HR* OxyCODONE Immed Rel 5 MG TABLET PO PRN (08:32)
[2019-06-13] MEDS: Aspirin Enteric Coated 81 MG Tablet PO SCH (09:58)
[2019-06-13] MEDS: Famotidine 20 MG TABLET PO SCH (09:58)
[2019-06-13] MEDS: Metoprolol XL (24 HR) Succ 50 MG TAB.ER.24H PO SCH (09:59)
[2019-06-13] MEDS: Cholecalciferol (D-3) 1,000 UNIT (25MCG) TABLET PO SCH (10:00)
[2019-06-13 12:18] VITALS: BP 126/78
== END 2019-06-13 16:03 | DRG 483 ==
LOC: SAMDAY 08:01 → 3NENU 13:05
PROVIDERS: ADMIT Orthopaedic Surgery; ATTEND Orthopaedic Surgery